=== PATIENT | female | born 2000 | race African-American/Black ===

== ENCOUNTER 2024-08-04 16:07 | Emergency (ER) | payer BC ==
[~2024-08-04] VITALS: Ht 162.6 cm; Wt 68.0 kg
[2024-08-04 16:12] VITALS: BP 123/79; PULSE 64; RESP 16; TEMP 97.9; O2SAT 100
== END 2024-08-04 21:14 | disposition left against medical advice (07) ==
LOC: ER 16:07
DX: R51.9 Headache, unspecified (principal); Z53.21 Procedure and treatment not carried out due to patient leaving prior to being seen by health care provider